=== PATIENT | male | born 1990 | race Caucasian/White ===

== ENCOUNTER 2020-12-16 23:07 | Emergency (ER) | payer BC ==
[2020-12-17] MEDS ORDERED: CEPHALEXIN500 M1 PO (03:49)
[2020-12-17] MEDS ORDERED: IBUPROFEN600 MG PO (03:49)
[2020-12-17] MEDS ORDERED: ANTIBIOTIC28.4 GM TP (03:49)
[2020-12-17] MEDS ORDERED: ZOFRAN4 MG PO (03:49)
== END 2020-12-17 04:00 | disposition home or self-care (01) ==
LOC: ER1 23:07
DX: S01.81XA Laceration without foreign body of other part of head, initial encounter (principal); M25.532 Pain in left wrist; Z23 Encounter for immunization; V86.59XA Driver of other special all-terrain or other off-road motor vehicle injured in nontraffic accident, initial encounter
CPT/HCPCS: 12011; 73110; 90471; 90715; 99283